=== PATIENT | female | born 1995 | race Caucasian/White ===

== ENCOUNTER → 2019-01-13 15:30 | Outpatient (CLI) | payer OTHER, SELFPAY ==
[2019-01-13 20:34] LABS: Chlamydia Trachomatis by PCR Negative (Negative); Neisserai gonorrhoeae by PCR Negative (Negative); Probe Check PASS; Sample Adequacy Control PASS; Specimen Processing Control PASS
== END ==
PROVIDERS: Visit Provider Obstetrics & Gynecology
DX: Z12.4 Encounter for screening for malignant neoplasm of cervix (principal); Z11.3 Encounter for screening for infections with a predominantly sexual mode of transmission
CPT/HCPCS: 87491; 87591; 88175; G0145

== ENCOUNTER → 2019-01-23 11:42 | Outpatient (CLI) | payer OTHER, SELFPAY ==
[2019-01-23 15:58] LABS: Color, Urine Yellow (Yellow); Glucose, Dipstick Normal (Normal); Ketone-Dipstick Negative (Negative); Leukocyte Esterase-Dipstick Negative /ul (Negative); Nitrite-Dipstick Negative (Negative); Occult Blood-Urine 10 /ul (Negative); Protein-Dipstick Negative (Negative); Specific Gravity, Urine 1.015 (1.002-1.030); Urine Bilirubin Dipstick Negative (Negative); Urine Clarity Cloudy (Clear); Urine Urobilinogen Normal (Normal)
[2019-01-23 16:02] LABS: Absolute Neutrophil Count 7.5 X10^3/uL (2.0-7.7); Basophil# 0.04 X10^3/uL; Basophil% 0.4 % (0-1); Eosinophil# 0.11 X10^3/uL; Mean Corp Hgb Conc 34.2 g/gl (32-36); Mean Corpuscular Hgb 30.6 pg (27.0-32.0); Mean Corpuscular Volume 89.4 fL (81-99); Mean Platelet Vol. 10.1 fl (6.2-12.0); Monocyte# 0.74 X10^3/uL; Neutrophil # 7.51 X10^3/uL (2.7-7.7); Neutrophil % 71.5 % (47-70); POSITIVE COUNT NO; POSITIVE DIFFERENTIAL NO; POSITIVE MORPHOLOGY NO; Platelet Count 280 K/mm3 (150-450); RBC Distribution Width CV 12.1 % (11.6-14.6); RBC Distribution Width SD 38.9 fl (35.1-43.9); Red Blood Count 4.25 M/mm3 (4.2-5.4); White Blood Count 10.5 K/mm3 (4.4-11.0)
[2019-01-23 16:30] LABS: Thyroid Stim Hormone (TSH) 0.68 uIU/mL (0.358-3.74)
[2019-01-23 17:07] LABS: HIV - WCH Non-Reactive (Nonreactive); Rubella IgG 44.4 IU/mL
[2019-01-23 17:16] LABS: Amphetamine Urine VISTA NEGATIVE (<1000 ng/mL); Barbiturate Urine VISTA NEGATIVE (< 200 ng/mL); Benzodiazepine Urine VISTA NEGATIVE (< 200 ng/mL); Cocaine Urine VISTA NEGATIVE (< 300 ng/mL); Ecstacy Urine VISTA NEGATIVE (< 500 ng/mL); Methadone Urine VISTA NEGATIVE (< 300 ng/mL); PCP Urine VISTA NEGATIVE (< 25 ng/mL); THC Urine VISTA NEGATIVE (< 50 ng/mL); Vista UDS pH Range 6
[2019-01-24 03:12] LABS: Prenatal RPR NONREACTIVE (NONREACTIVE)
[2019-01-26 09:51] LABS: HEPATITIS B SURFACE AG Negative (Negative); Hep C Antibodies <0.1 s/co ratio (0.0-0.9)
== END ==
PROVIDERS: Visit Provider Obstetrics & Gynecology
DX: Z34.81 Encounter for supervision of other normal pregnancy, first trimester (principal)
CPT/HCPCS: 36415; 80307; 81002; 84443; 85025; 86703; 86762; 86803; 87340

== ENCOUNTER 2019-03-09 18:43 | Emergency (ER) | payer OTHER, SELFPAY ==
[2019-03-09 18:43] VITALS: BP 147/81; PULSE 98; RESP 16; TEMP 36.3; O2SAT 100; BMI 22.8
[2019-03-09 19:49] LABS: Absolute Lymphocyte Count 2.39 X10^3/ul (0.83-4.51); Absolute Neutrophil Count 8.4 X10^3/uL (2.0-7.7); Basophil# 0.03 X10^3/uL; Basophil% 0.3 % (0-1); Eosinophil# 0.06 X10^3/uL; Eosinophils% 0.5 % (0-5); Hematocrit 31.8 % (37-47); Hemoglobin 11.4 g/dl (12.0-15.0); Lymphocyte # 2.39 X10^3/ul (4.0); Lymphocyte % 20.6 % (19-41); Mean Corp Hgb Conc 35.8 g/gl (32-36); Mean Corpuscular Hgb 30.5 pg (27.0-32.0); Monocyte# 0.67 X10^3/uL; Monocyte% 5.8 % (0-10); Neutrophil # 8.43 X10^3/uL (2.7-7.7); Neutrophil % 72.6 % (47-70); Platelet Count 234 K/mm3 (150-450); RBC Distribution Width CV 12.9 % (11.6-14.6); RBC Distribution Width SD 39.8 fl (35.1-43.9); Red Blood Count 3.74 M/mm3 (4.2-5.4); White Blood Count 11.6 K/mm3 (4.4-11.0)
[2019-03-09 19:51] LABS: POSITIVE COUNT NO; POSITIVE DIFFERENTIAL NO; POSITIVE MORPHOLOGY NO
[2019-03-09 20:05] LABS: Internal QC Validated? YES +Cl - CLEAR BKGD
[2019-03-09 20:08] LABS: Pregnancy, Serum, hCG Quali. POSITIVE Negative
--- NOTE | 2019-03-09 20:08 | ED.VISSUMM ---
- ER Visit Summary Date of Service: 03/09/19 Chief Complaint: Vaginal bleeding History of Present Illness: The patient is a 23 F 13-week gestation followed by Dr. Elizalde presents with vaginal bleeding while getting ready for work at 4 PM. Soaked 1 pad, light bleeding since. No abdominal cramping with symptoms. Denies trauma. Mild dysuria today. No fevers. Denies any past medical history. Denies alcohol, tobacco, or illicit drug use. Last seen obese 6 days ago. Denies any risky sexual behaviors. Takes vitamins and nausea medicines for induced vomiting. Physical Examination: General: Alert and oriented ?3, no acute distress HEENT: Normocephalic, atraumatic. Moist mucosa membranes Neck: supple, nontender. Cardiovascular: Regular rate and rhythm, no murmurs Respiratory: Normal breath sounds, symmetric, no distress Abdomen: Soft, nontender, nondistended : Normal external exam, speculum examination brown discharge in the vault, cervix and osseous normal. No active bleeding. Extremities: Nontender, no edema, pulses intact ?4 Neuro: no focal neurological deficits. Test Results: Hemoglobin 0.4. Creatinine 0.66. UA normal. ABO Rh: B+. Wet prep negative. GC and chlamydia sent. Emergency Department Course and Treatment: There is no active bleeding. Bedside ultrasound performed myself noted heart tones 158 with intrauterine . Hemoglobin stable 11.4. She is Rh+ this is her first . GC chlamydia sent. Discussed threatened miscarriage at this time. Pelvic rest. Monitoring symptoms. Follow-up with your PCP. All questions answered. Treatment Plan: [] Disposition: Discharge Impression: 1. Threatened miscarriage 2. First trimester This note was generated with [employer] dictation software. It may contain incorrect words, spelling, and punctuation that were not noted in review of the chart prior to signing ED Disposition - Plan for ED Patient: Disposition: Home or Assisted Living Diagnosis: Threatened miscarriage, First trimester Instructions: ED Miscarriage Poss Referrals: Duane Elizalde MD [Primary Care Provider] - 3-5 Days
[2019-03-09 20:09] LABS: Anion Gap 7 (5-15); BUN 7 mg/dL (7-18); BUN/Creat Ratio 10.5 RATIO (10-20); Calcium,Total 8.7 mg/dL (8.5-10.1); Chloride 107 mmol/L (98-107); Creatinine, Serum 0.66 mg/dL (0.55-1.02); EST Glomerular Filtration Rate 118 mL/min (>60); Est Glom Filt Rate - Afr Amer 142 mL/min (>60); Estimated Creatinine Clearance 115.45 ml/min; Glucose 72 mg/dL (74-106); Potassium 3.7 mmol/L (3.5-5.1); Sodium Level 140 mmol/L (136-145)
[2019-03-09 20:31] LABS: Mucous, Urine 0 SEEN /hpf (<or=2+); Red Blood Cells-Urine 0 SEEN /hpf (0-5); Squamous Epithelial Cells - UA 0 SEEN /hpf (5-10); White Blood Cells 0 SEEN /hpf (0-5)
[2019-03-09 20:37] LABS: Color, Urine Yellow (Yellow); Glucose, Dipstick Normal (Normal); Ketone-Dipstick 50 mg/dl (Negative); Leukocyte Esterase-Dipstick Negative /ul (Negative); Nitrite-Dipstick Negative (Negative); Occult Blood-Urine 25 /ul (Negative); Protein-Dipstick Negative (Negative); Specific Gravity, Urine 1.015 (1.002-1.030); Urine Bilirubin Dipstick Negative (Negative); Urine Clarity Cloudy (Clear); Urine Urobilinogen Normal (Normal)
[2019-03-09 20:49] LABS: Amorphous Sediment 2+; Bacteria RARE /hpf (None Seen)
[2019-03-09 21:16] VITALS: BP 131/56; PULSE 90; RESP 16
[2019-03-09 22:35] LABS: Chlamydia Trachomatis by PCR Negative (Negative); Neisserai gonorrhoeae by PCR Negative (Negative); Probe Check PASS; Sample Adequacy Control PASS; Specimen Processing Control PASS
== END 2019-03-09 21:16 | disposition home or self-care (01) ==
PROVIDERS: Emergency Medicine; Emergency Provider Emergency Medicine; Family Provider Obstetrics & Gynecology; PCP Obstetrics & Gynecology
DX: O20.0 Threatened abortion (principal); R30.0 Dysuria; Z3A.13 13 weeks gestation of pregnancy
CPT/HCPCS: 80048; 81001; 84703; 85025; 86850; 86900; 87210; 87491; 87591; 99282

== ENCOUNTER → 2019-06-19 09:50 | Outpatient (CLI) | payer OTHER, SELFPAY ==
[2019-06-19 10:33] LABS: Hematocrit 30.9 % (37-47); Hemoglobin 10.6 g/dL (12.0-15.0); Mean Corp Hgb Conc 34.3 g/dL (32-36); Mean Corpuscular Volume 90.4 fL (81-99); Mean Platelet Vol. 9.5 fl (6.2-12.0); Platelet Count 250 K/mm3 (150-450); RBC Distribution Width CV 11.5 % (11.6-14.6); RBC Distribution Width SD 37.3 fl (35.1-43.9); Red Blood Count 3.42 M/mm3 (4.2-5.4); White Blood Count 10.1 K/mm3 (4.4-11.0)
[2019-06-19 10:38] LABS: Glucose Challenge Gest 1H 50g 129 mg/dL (70-140)
== END ==
PROVIDERS: Visit Provider Obstetrics & Gynecology
DX: Z34.83 Encounter for supervision of other normal pregnancy, third trimester (principal); Z3A.00 Weeks of gestation of pregnancy not specified
CPT/HCPCS: 36415; 82950; 85027

== ENCOUNTER 2019-08-09 17:13 | Outpatient (CLI) | payer OTHER, SELFPAY ==
[2019-08-09 17:19] VITALS: BMI 29.9
--- NOTE | 2019-08-10 20:18 | OB.TRI.NOTE ---
- Problem List (1) Decreased movement Status: Acute Qualifiers: Fetus number: single or unspecified fetus Trimester: third trimester Qualified Code(s): O36.8130 - Decreased movements, third trimester, not applicable or unspecified History of Present Illness Date of Service: 08/10/19 Was patient seen by the physician?: No Reason For Visit: DFM Final GEOVANNI: 09/08/19 Final GEOVANNI Source: US <20 weeks Gestational age: 35 Weeks and 5 Days History of Present Illness: 23yo G1 @ 35 5/7 wga with c/o decreased FM Allergies acetaminophen [From Vicodin] Adverse Reaction (Verified 08/09/19 17:20) Nausea/Vom/Diarrhea hydrocodone [From Vicodin] Adverse Reaction (Verified 08/09/19 17:20) Nausea/Vom/Diarrhea NST - FHR Rate Baby A Baseline: 130 Variability:: Moderate Accelerations:: 15 x 15 Decelerations:: None NST Reactive:: Yes FHR Category:: Category I Uterine Activity:: 0/10 min Impression/Plan -Pt reported movement during monitoring -Cat I FHR, reactive NST -d/c home
== END 2019-08-09 17:40 | disposition home or self-care (01) ==
LOC: WPOUT 17:16 → WP 08-11 11:10
PROVIDERS: Visit Provider Obstetrics & Gynecology
DX: O36.8130 Decreased fetal movements, third trimester, not applicable or unspecified (principal); Z88.5 Allergy status to narcotic agent; Z3A.35 35 weeks gestation of pregnancy
CPT/HCPCS: 59025; 59050; 99218; G0378

== ENCOUNTER → 2019-08-11 13:34 | Outpatient (CLI) | payer OTHER, SELFPAY ==
[2019-08-09 17:19] VITALS: BMI 29.9
== END ==
PROVIDERS: Visit Provider Obstetrics & Gynecology
DX: Z36.85 Encounter for antenatal screening for Streptococcus B (principal)
CPT/HCPCS: 87081

== ENCOUNTER 2019-09-14 03:00 | Inpatient (IN) | payer OTHER, SELFPAY ==
[2019-09-14] MEDS: Lactated Ringers 1,000 ML 50 ML IV (03:20)
[2019-09-14 03:22] VITALS: BMI 30.7
[2019-09-14 03:35] LABS: Absolute Lymphocyte Count 2.64 X10^3/uL (0.83-4.51); Absolute Neutrophil Count 9.9 X10^3/uL (2.0-7.7); Basophil# 0.05 X10^3/uL; Basophil% 0.4 % (0-1); Eosinophil# 0.08 X10^3/uL; Eosinophils% 0.6 % (0-5); Hemoglobin 9.6 g/dL (12.0-15.0); Lymphocyte # 2.64 X10^3/ul (4.0); Lymphocyte % 19.2 % (19-41); Mean Corpuscular Hgb 25.1 pg (27.0-32.0); Mean Corpuscular Volume 78.5 fL (81-99); Mean Platelet Vol. 10.8 fl (6.2-12.0); Monocyte# 1.04 X10^3/uL; Monocyte% 7.6 % (0-10); NRBC Flagged by Analyzer 0 % (0-5); Neutrophil # 9.85 X10^3/uL (2.7-7.7); Neutrophil % 71.5 % (47-70); Platelet Count 303 K/mm3 (150-450); RBC Distribution Width CV 12.7 % (11.6-14.6); Red Blood Count 3.82 M/mm3 (4.2-5.4); White Blood Count 13.8 K/mm3 (4.4-11.0)
[2019-09-14] MEDS: Oxytocin 30 units/NS 500 ml 30 UNITS/500 ML IV.SOLN 334 UNITS IV (05:24)
[2019-09-14] MEDS: Methylergonovine 0.2 MG/ML Ampul IM (05:24)
--- NOTE | 2019-09-14 06:25 | PCM.OPRPT ---
Vaginal Delivery Maternal Presentation: Active Labor 23 yo at 40w5d presents in active labor @ 40w6d gestation Amniotic Membrane Rupture Type: Artificial Rupture of Membrane time: 331 Amniotic Fluid Description: Clear Final GEOVANNI: 09/08/19 Final GEOVANNI Source: US <20 weeks Gestational age: 40 Weeks and 6 Days Date of Procedure: 09/14/19 Pre-Operative Diagnosis: 23 yo at 40w6d gestation Post-Operative Diagnosis: Surgery/ Procedure Performed: Spontaneous Vaginal Delivery Type of Anesthesia: Local with 1% lidocaine Description of Procedure: Pushed well, required extensive coaching, and delivered a vigorous male infant OA to LORIE over a 2nd degree perineal laceration; shoulders followed quickly with maternal effort; infant placed on maternal abdomen, dried and stimulated, cord clamped x 2 by provider and cut by FOB; placenta delivered spontaneously with gentle cord traction, Ambrosio mechanism, intact, 3-vessel cord, central insertion; 2nd degree perineal laceration repaired with 3-0 Vicryl, good hemostasis obtained; EBL 450ml Lap sponge, Raytec and instrument count correct x 2 with RN Presentation: Vertex, LORIE Placental Delivery Description: Spontaneous Placenta Disposition: [facility] Cord Vessel Description: 3 Vessels Cord Entanglement: None Estimated Blood Loss: 400 Infant A gender: Male (1 minute): 8 (5 minute): 9 Episiotomy Description: None Laceration: Midline, Perineal Extension/lac, 2nd degree Medications given after delivery: IV Pitocin
--- NOTE | 2019-09-14 06:45 | DCINST_ITS ---
Discharge Diet: No Restrictions Discharge Activity: Return to Normal Activity, May Drive, May Shower, May Take a Tub Bath Return to work on:: 10/20/19 May resume sexual activity in: 6-8 weeks Weight Bearing Status: Weight bearing as tolerated Lifting Restrictions: Nothing heavier than the baby for two weeks Additional Activity Instructions:: No cooking, cleaning, shopping, or long car rides for two weeks Additional Instructions: If you experience any of the following, contact your healthcare provider. * Bleeding that soaks a pad every hour for 2 hours * Fever 100.4 or higher * Unrelieved incision or abdominal pain * Swelling, redness, discharge or bleeding from your incision or episiotomy site * Your incision begins to separate * Problems urinating (including inability to urinate or burning while urinating). * Visual changes * Severe headache * Flu-like symptoms * Pain or redness in one of both of your breasts * Pain, warmth, tenderness or swelling in your legs, especially the calf area * Frequent nausea and vomiting * Symptoms of depression or anxiety If you experience any of the following, call 911 or go to the nearest Emergency Room. * Chest pain * Problems breathing * Seizure activity * Partial or complete paralysis of a body part, slurred speech, weakness or drooping of the face, or a sudden inability to walk or hold your balance Allergies/Adverse Reactions: Allergies acetaminophen [From Vicodin] Adverse Reaction (Verified 08/09/19 17:20) Nausea/Vom/Diarrhea hydrocodone [From Vicodin] Adverse Reaction (Verified 08/09/19 17:20) Nausea/Vom/Diarrhea Medications to take at Discharge Vit No.130/Iron/Folic [ Tablet] 1 ea PO DAILY 08/09/19 Dibucaine 1 applic TOPICAL TID PRN PRN tube 09/16/19 Hydrocortisone 2.5% Crm [Hytone] 1 applic TOPICAL TID PRN PRN tube 09/16/19 Ibuprofen [Motrin] 600 mg PO Q6H PRN PRN tablet 09/16/19 Please Follow Up With: Josefina Edward CNM When: 6 weeks for checkup Primary Care Physician: Care Physician,No Primary [Primary Care Provider] - Test Results: Test results from this visit will be discussed in further detail at your follow- up appointment, if applicable.
[2019-09-14] MEDS: Ibuprofen 600 MG Tablet PO ×3 (08:06→23:55)
[2019-09-14] MEDS: Dibucaine 30 GM Tube 1 APPLIC TOPICAL (08:12)
[2019-09-14 12:30] VITALS: BP 123/66; PULSE 89; RESP 18; TEMP 37.3
[2019-09-14] MEDS: Acetaminophen 500 MG Tablet 1000 MG PO (12:59)
--- NOTE | 2019-09-14 16:01 | HP.PCM_ITS ---
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 : 1995 Age: 23 Address: [address] [place] [address] Phone: [phone] Insurance Carrier: [facility] [id number] Emergency Contact: JIMMIE BOUDREAUX [phone] ...................................................................... Roland is a 23 yo by L=7w3d US who presented in active labor. Final GEOVANNI: 09/08/19 By Ultrasound: PARITY: (G-Total Pregnancies P-Fullterm,Premature,Induced AB,Spont AB, Ectopics, Multiple,Living) GEOVANNI CONFIRMATION: By LMP: 12/02/18 Final GEOVANNI: 09/08/19 BLOOD TYPE: AFP: I 1 HR PG: GBS: Original Ordering Provider: Liseth Hernandez Comments: VAGINAL/RECTAL MARION Culture Group B Beta Streptococcus is not isolated. Rublla titer (>10 immune)-- Hepatatis B ilana AG-- CULTURES:-- OB PROBLEM LIST: FOB and pt weighed 10+ and 9+ lbs at respectively FOB born with one kidney, remaining kidney is enlarged MSAFP and CF testing declined Planning office childbirth and classes Pt's mother had 3+ first trimester SAB's ALLERGIES: Vicodin Vomiting MEDICATIONS: One A Day Women's DHA 28 mg iron-800 mcg oral pack daily promethazine 25 mg tablet One Half tablet by mouth every 4 to 6 hrs as needed for nausea / vomiting Vitamin B-6 50 mg capsule daily Vitamin C 250 mg chewable tablet daily SOCIAL HISTORY: Smoking - Never Alcohol Use - denies drinking Diet - moderate, balanced diet Lifestyle - Exercise - active work Employer - [id number] 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 Drug Use - denies use of street drugs Sexual Activity - Residence - lives with Place of - [place], [place] Hours Worked - 40 hours per week Spouse-Sig Other Name - Jimmie Noblest Spouse-Sig Other Occupation - Button Attaching Machine Operator Spouse-Sig Other Phone No - [phone] PRIOR DELIVERY HISTORY DEL DATE GEST LAB WT LB WT OZ TYPE ANES LABOR TX ANTEPARTUM FLOW CHART VISIT GE RTC FU F F MS U U DATE WK MD WKS HT PN HR M SS BP ED WT MS GL D EF ST __ ____ ___ __ __ ___ __ __ __ ___ __ __ __ ___ __ 16 Aug 40 JMW 1 40 V + + 120/70 0 177 - - 4 90 -1 11 Aug 39 SHM 1 40 V + + 110/80 sl 178 - - 4+ 75 -2 08 Aug 39 SHM 1 39 V + de 114/70 0 177 - - 4 75 -3 30 Sep 38 JMW 1 38 V + + 112/66 sl 173 tr - 4 80 -2 23 Sep 37 KW 1 36 + + 118/76 sl 173 tr - 16 Sep 36 SHM 1 36 V + + 110/60 0 172 tr - 3 50 -3 11 Sep 35 JMW 1 35 + + 124/62 tr 170 - - Jun JMW 2 33 + + 100/64 0 167 tr - 07 Jul 25 JMW 3 30 + + 122/62 tr 163 - - Jun 22 JMW 3 28 + + 120/62 0 153 - tr May 19 JMW 4 24 + + 108/72 0 154 tr - 30 April 14 JMW 4 20 + + 110/70 0 147 - - April 11 JMW 3 17 + O 116/60 0 137 tr - 05 Mar 07 JMW 4 + O 128/72 0 132 tr - 28 Dec 7 JMW 4 U+ US 126/70 0 135 tr - ANTEPARTUM NOTE(S): Sep 10 2019: feeling well. Cervix check., induce per request Sep 05 2019: feeling well. Cervix check. Sep 02 2019: doing well, changes to movement, inc discharge Aug 25 2019: Ctxs-occas, Good FM Aug 18 2019: Low Pressure,Good FM Aug 11 2019: GBS, LARC today Aug 06 2019: Good FM,See note Jul 23 2019: feeling well. Nerve pinching on R lower abdomen. Jul 02 2019: Good FM,Feeling Well Jun 19 2019: CBC,OGCT Today,Good FM,Feeling Well May 22 2019: Glucola/Instructions Given,Good FM Apr 24 2019: feeling well., US OK Apr 01 2019: Declines AFP and Doing Well Feb 28 2019: nausea continues, fatigue improving Jan 23 2019: Sono,NOB and PNV Today,Periodic N/V COMPREHENSIVE ANTEPARTUM NOTE(S): Sep 10 2019: (m*) Here at 40.2 weeks. + FM. FHR 121. Reports green mucous discharge over the last week. Has been stripped twice and does not wish to be done today, but is wanting induction. Wishes to not start with pitocin, hopes to have water broke and try to labor naturally. If no change is willing to then start pitocin. Will schedule induction and call her with date/time. - CH Sep 02 2019: Membranes stripped, NST for dec FM, reactive. Aug 25 2019: H taken to OB. tkg Aug 18 2019: Feeling well; reports active FM; Feleling some lower pelvic pressure; VB, LOF; discussed warning signs, s/s Labor, when to call/come in; RTO 1 week for PNV - KVW Aug 15 2019: GBS negative. EB Aug 11 2019: LARC declined. Discussed Labor, ROM, FM precautions. US CEPHALIC. AAKASH 10cm, EFW 2657g (33.8th%). GBS today. Aug 10 2019: Call msg from Sat 08/09 @ [address] Elizalde. Roland calling @ 35 wks 5 days stating she has felt very little FM for the past 2 days. She did not call the office yesterday stating she was working. Sent to L+D for evaluation well-being. Aug 06 2019: Roland and spouse presents here today for PNV and asking about Flu shots and our feeling on same. Reviewed that after first trimester they are recommended. She also ask about having periodic restless legs, suggested increasing water intake, admits she drinks 2 full glasses of milk daily, and may want to add a Magnesium supplement, as some report that helps their legs a lot. Denies other concerns at this time. TYRESE Jul 23 2019: Feeling well; reports active FM; denies UCs, VB, LOF; experiencing some cramping in lower legs at night, especially after a long shift on her feet, as well as round ligament pain; recommendations to alleviate d iscussed; discussed warning signs, s/s PTL; RTO 2 week(s)for PNV Feb 01 2019: Call Msg from 10:45 PM. Pt of Roland Francisco calling @ 8 wks stating nausea and vomiting has been getting worse, only occurring in the evenings. Feeling better during the day. Taking B6 and Unisom, but not helping..Drinking mostly water and some apple juice during the day having no problems then. Reviewed some ladies do have issues in the evenings vs mornings. Happens after eating evening meal. Reviewed dietary suggestions to help lessen nausea: avoid meat, dairy, tomato products same meal. Meat should not be more than half the palm of her hand. Plant proteins better tolerated than animal proteins. Try eating more water based foods + plant proteins in the evenings which may help. Per discussion w/Dr Jose G Sousa, Rx Promethazine 25 mg, # 60, 1/2 tablet by mouth q 4-6 hrs as needed, RF x 5 called to [facility] in [place]. I was not able to speak to the pharmacist, tech telling me pharmacist too busy. All pertinent informtion re: Order left on VM and to call me back if any questions. My phone # given. Former last name . She is and last name now [facility]. Jan 24 2019: B positive RI. Tox screen neg. EB Jan 23 2019: Roland is here for her NOB visit at 7 w 3 d, she is a with an GEOVANNI of 09/08/2019. US and PNV with Dr. Elizalde completed prior to NOB vis it. , Jimmie, accompanies Roland today, and he seems very involved and interested. Office practice patterns reviewed, including labs being collected today. Emergencies/danger signs, UTI s/s, round ligament pain, and common OTC medications approved/not approved for use during reviewed. Delivery at [facility] Is planned with a likely epidural, and she plans to breastfeed. Office and childbirth classes discussed, both are planned. Roland is a life long non-smoker, and denies use of drugs or ETOH. She has been taking an OTC tablet, along with a DHA supplement; but states that she has trouble with both making her sick sometimes. Suggested taking vitamin just before going to sleep at night, or trying a gummy vitamin. She experiences nausea almost days, but feels that Vitamin B6 50 mg twice a day has been helping; she states that she took. Unisom at bedtime last night and felt it was helpful; she plans to continue same. Also reviewed other measures that may help minimize nausea, including small frequent meals with protein included throughout the day, adequate water hydration of at least one gallon per 24 hrs, and motion sickness bracelets. Genetic Screening form completed; Jimmie was born with one kidney, and the remaining kidney is enlarged. MSAFP and CF testing declined, consent signed as such. 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 She also walks several times a week on her treadmill, and plans to continue to do so. Kegel exercises explained and encouarged. Reinforced water and dietary needs, including caloric needs, recommended weight gain, limiting empty calories, and limiting caffeine to one cup a day. Printed guide for food safety provided with review. Roland states that she understands all information provided during NOB visit, and has no questions following same. To [facility] draw station for labs. AW Jan 13 2019: Roland is being seen for missed menses appt. Pt is new to this facility. This is her first . UPT in office is positive. LMP 1-7-19. Pt is about 6 weeks. GEOVANNI 09-08-19. Pt also does have twins in her family. Pt has been taking B6 due to nausea and it seems to be helping. 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 I advised her and her that she can do as much as she can for now but when it starts to be a problem then working will have to be reduced. She also knows she will have lifting restrictions which is lifting no more than 25 lbs. information reviewed. Pap and cultures due today. AM Jan 13 2019: ok REVIEW OF SYSTEMS: GENERAL - Denies fever, or chills SKIN - Denies rash, new skin lesions, or change in moles EYES - Denies blurred vision, or change in visual acuity EARS - Denies ear pain, or difficulty hearing NOSE - Denies nasal congestion, discharge, or bleeding MOUTH - Denies sore throat, or difficulty swallowing NECK - Denies pain or swelling RESPIRATORY - Denies shortness of breath, cough, wheezing CARDIOVASCULAR - Denies palpitations, chest pain, orthopnea, PND, peripheral edema, syncope or claudication GASTROINTESTINAL - Denies nausea, vomiting, diarrhea, constipation, Denies abdominal pain, melena and or bright red blood GENITOURINARY - Denies dysuria, frequency of urination, urgency, or hesitancy MUSCULOSKELETAL - Denies joint or muscle pain, or back pain NEUROLOGICAL - Denies localized numbness, weakness, or tingling PSYCHIATRIC - Denies depression, anxiety, substance abuse or suicide attempts ENDOCRINE - Denies heat or cold intolerance, weight loss or gain, increasing thirst HEMATO-IMMUNOLOGIC - Denies easy bruising, bleeding, oral ulcerations or recurrent infections GENETICS SCREENING: Age 35+ years: No Thalassemia: No Neural Tube Defect: No Down Syndrome: No MEEK-SACHS: No Sickle Cell Disease: No Hemophilia: No Musc. Dystrophy: No Cystic Fibrosis: No-declines screening Gustavo Chorea: No Mental Retardation: No Fragile X: No Other genetic: No Other defects: No SABs/still births: No Drugs since LMP: No INFECTION HISTORY: High risk AIDS: No High risk Hepatitis: No Exposed to TB: No Exposed to Herpes: No Rash/viral illness since LMP: No History of STD: No MENSTRUAL HISTORY: *Menses Amount/Duration: 5-6 DAYSMenses Regularity: Regular* PAST SUMMARY: PARITY: 1. Total Pregnancies............ 1 2. Full Term Pregnancies........ 0 3. Premature.................... 0 4. Abortions - Induced.......... 0 5. Abortions - Spontaneous...... 0 6. Ectopics..................... 0 7. Multiple Births.............. 0 8. Living Children.............. 0 Labs for : ROLAND NOBLESOLT since 12/12/2018 ORDER DATEIN DESCRIPTION VALUE UNITS RANGE A+ COMMENT OPERATIVE REPORT 09/14/19 [facility] Medical Records Department [address] [place] [address] Operative Report 09/14/19 0625 MR#: [id number] Acct: [id number] Name: ROLAND BOUDREAUX Rep #: [id number] : 1995 23 From: Josefina Edward CNM PCP: Care Physician, No Primary Status: ADM IN Location: [place] [id number] Vaginal Delivery Maternal Presentation: Active Labor 23 yo at 40w5d presents in active labor @ 40w6d gestation Amniotic Membrane Rupture Type: Artificial Rupture of Membrane time: 331 Amniotic Fluid Description: Clear Final GEOVANNI: 09/08/19 Final GEOVANNI Source: US <20 weeks Gestational age: 40 Weeks and 6 Days Date of Procedure: 09/14/19 Pre-Operative Diagnosis: 23 yo at 40w6d gestation Post-Operative Diagnosis: Surgery/ Procedure Performed: Spontaneous Vaginal Delivery Type of Anesthesia: Local with 1% lidocaine Description of Procedure: Pushed well, required extensive coaching, and delivered a vigorous male infant OA to LORIE over a 2nd degree perineal laceration; shoulders followed quickly with maternal effort; placed on maternal abdomen, dried and stimulated, cord clamped x 2 by provider and cut by FOB; placenta delivered spontaneously with gentle cord traction, Ambroiso mechanism, intact, 3-vessel cord, central insertion; 2nd degree perineal laceration repaired with 3-0 Vicryl, good hemostasis obtained; EBL 450ml Lap sponge, Raytec and instrument count correct x 2 with RN Presentation: Vertex, LORIE Placental Delivery Description: Spontaneous Placenta Disposition: [facility] Cord Vessel Description: 3 Vessels Cord Entanglement: None Estimated Blood Loss: 400 A gender: Male (1 minute): 8 (5 minute): 9 Episiotomy Description: None Laceration: Midline, Perineal Extension/lac, 2nd degree Medications given after delivery: IV Pitocin 09/14/19 1555 Date Josefina Edward CNM CC: CNMehdi Edward; No Primary Care Physician Signed TYPE AND SCREEN 09/14/19 Reason for Type AND Screen/Red Cells: [facility]~[address] [place], [address]~ BLOOD TYPE GEL B POSITIVE N ANTIBODY SCREEN NEGATIVE N CBC W/DIFF, AUTOMATED 09/14/19 NOTE Original Ordering Provider: MANUELMehdi Edward WBC 13.8 K/mm3 4.4-11.0 H RBC 3.82 M/mm3 4.2-5.4 L HGB 9.6 g/dL 12.0-15.0 L HCT 30.0 % 37-47 L MCV 78.5 fL 81-99 L MCH 25.1 pg 27.0-32.0 L MCHC 32.0 g/dL 32-36 RDW CV 12.7 % 11.6-14.6 RDW SD 36.0 fl 35.1-43.9 PLT 303 K/mm3 150-450 MPV 10.8 fl 6.2-12.0 NEUT% 71.5 % 47-70 H LY% 19.2 % 19-41 MONO% 7.6 % 0-10 EO% 0.6 % 0-5 BASO% 0.4 % 0-1 IM GRAN % 0.700 % 0.0-0.9 IG% - Immature Granulocytes (promyelocytes, myelocytes and metamyelocytes) > 1% indicates that a LEFT SHIFT is Present. ABSOLUTE NEUT 9.9 X10 3/uL 2.0-7.7 H ABSOLUTE LYMPH 2.64 X10 3/uL 0.83-4.51 NRBC, FLAGGED 0 % 0-5 CULTURE, GROUP B STREPTOCOCCUS 08/11/19 NOTE Original Ordering Provider: Liseth Hernandez Comments: VAGINAL/RECTAL MARION Culture Group B Beta Streptococcus is not isolated. Reviewed by DWAYEN GLUCOSE CHALLENGE GEST 1H 50G 06/19/19 NOTE Original Ordering Provider: Laura Elizalde GLU GEST 50G 1H 129 mg/dL 70-140 Reviewed by LAURA CBC-COMPLETE BLOOD CNT NO DIFF 06/19/19 NOTE Original Ordering Provider: Laura Elizalde WBC 10.1 K/mm3 4.4-11.0 RBC 3.42 M/mm3 4.2-5.4 L HGB 10.6 g/dL 12.0-15.0 L HCT 30.9 % 37-47 L MCV 90.4 fL 81-99 MCH 31.0 pg 27.0-32.0 MCHC 34.3 g/dL 32-36 RDW CV 11.5 % 11.6-14.6 L RDW SD 37.3 fl 35.1-43.9 PLT 250 K/mm3 150-450 MPV 9.5 fl 6.2-12.0 Reviewed by LAURA HEPATITIS C ANTIBODIES 01/23/19 NOTE Original Ordering Provider: Laura Tonio HEP C AB <0.1 s/co ratio 0.0-0.9 Negative: < 0.8 Indeterminate: 0.8 - 0.9 Positive: > 0.9 The CDC recommends that a positive HCV antibody result be followed up with a HCV Nucleic Acid Amplification test (312570). HEPATITIS B SURFACE AG 01/23/19 NOTE Original Ordering Provider: Laura Elizalde HB SURF AG Negative Negative Performed at: [address] [id number] Critical Care Physician: Horacio Jimenez PhD, Phone: [phone] Reviewed by DWAYNE RPR 01/23/19 NOTE Original Ordering Provider: Laura Martyumiko RPR NONREACTIVE NONREACTIVE Reviewed by DWAYNE URINALYSIS, ROUTINE (DIPSTICK) 01/23/19 NOTE Original Ordering Provider: Laura Elizalde COLOR Yellow Yellow CLARITY Cloudy Clear GLUCOSE, UR Normal mg/dl Normal BILIRUBIN URINE Negative mg/dL Negative KETONE UR Negative mg/dl Negative SP.GR. DIPSTX 1.015 1.002-1.030 PH UR 8.0 5.0 - 8.0 PROT DIPSTX Negative mg/dl Negative UROBILI Normal mg/dl Normal NITRITE UR Negative Negative OCCULT BLOOD-UR 10 /ul Negative H LEUK ESTERASE Negative /ul Negative Reviewed by DWAYNE URINE DRUG SCREEN (VISTA) 01/23/19 NOTE Original Ordering Provider: Laura Elizalde TO BE CONFIRMED CONFIRMATORY TESTING FOR ALL POSITIVE URINE DRUG SCREEN RESULTS WILL ONLY BE SENT OUT UPON PHYSICIAN ORDER. VISTA Urine Drug Screen methods provide only preliminary analytical test results. A more specific alternate chemical method must be used in order to obtain a confirmed analytical result. Gas chromatography/mass spectrometery (GC/MS) is the preferred confirmatory method. Clinical consideration and professional judgement should be applied to any drug of abuse test result, particularly when preliminary positive results are used. URINE TCA TESTING MUST BE ORDERED SEPARATELY. USE TEST MNEMONIC: [facility] VISTA UDS PH 6 AMPHETAMINES NEGATIVE <1000 ng/mL BARBITIURATES NEGATIVE < 200 ng/mL BENZODIAZIPINE NEGATIVE < 200 ng/mL COCAINE NEGATIVE < 300 ng/mL ECSTACY NEGATIVE < 500 ng/mL METHADONE NEGATIVE < 300 ng/mL OPIATES NEGATIVE < 300 ng/mL PCP NEGATIVE < 25 ng/mL THC NEGATIVE < 50 ng/mL Reviewed by DWAYNE HIV - [facility] 01/23/19 NOTE Original Ordering Provider: Laura Elizalde HIV [facility] Non-Reactive Nonreactive Reviewed by DWAYNE RUBELLA IGG 01/23/19 NOTE Original Ordering Provider: Laura Elizalde RUBELLA IGG 44.4 IU/mL Antibody results Interpretation of Immune Status < 5 IU/ml Presumed Non-immune 5 - < 10 IU/ml Equivocal > or = 10 IU/ml Presumed Immune Reviewed by DWAYNE T AND S-NO CHARGE W/PNP 01/23/19 Reason for Type AND Screen/Red Cells: Surgery? [facility]~[address] [place], [address]~ BLOOD TYPE GEL B POSITIVE N AB SCREEN GEL NEGATIVE N Reviewed by DWAYNE THYROID STIM HORMONE (TSH) 01/23/19 NOTE Original Ordering Provider: Laura Elizalde TSH 0.68 uIU/mL 0.358-3.74 Reviewed by LAURA CBC W/DIFF, AUTOMATED 01/23/19 NOTE Original Ordering Provider: Laura Elizalde WBC 10.5 K/mm3 4.4-11.0 RBC 4.25 M/mm3 4.2-5.4 HGB 13.0 g/dl 12.0-15.0 HCT 38.0 % 37-47 MCV 89.4 fL 81-99 MCH 30.6 pg 27.0-32.0 MCHC 34.2 g/gl 32-36 RDW CV 12.1 % 11.6-14.6 RDW SD 38.9 fl 35.1-43.9 PLT 280 K/mm3 150-450 MPV 10.1 fl 6.2-12.0 NEUT% 71.5r % 47-70 H LY% 20.0 % 19-41 MONO% 7.0 % 0-10 EO% 1.0 % 0-5 BASO% 0.4 % 0-1 IM GRAN % 0.100 % 0.0-0.9 IG% - Immature Granulocytes (promyelocytes, myelocytes and metamyelocytes) > 1% indicates that a LEFT SHIFT is Present. ABSOLUTE NEUT 7.5 X10 3/uL 2.0-7.7 ABSOLUTE LYMPH 2.10 X10 3/ul 0.83-4.51 Reviewed by LAURA Reviewed by LAURA PAP TEST I-G 01/13/19 NOTE Original Ordering Provider: Laura Elizalde DIAGN . NEGATIVE FOR INTRAEPITHELIAL LESION OR MALIGNANCY. THIS SPECIMEN WAS RESCREENED PART OF OUR SVP PROGRAMMATIC TV PROGRAM. ADEQ . Satisfactory for evaluation. Endocervical and/or squamous metaplastic cells (endocervical component) are present. PERFORM . Richa Moreno, Hand I Cutter (ASCP) QC REV . Lexis Travis, Supervisory Hand I Cutter (ASCP) TEST METHOD . This liquid based ThinPrep(R) pap test was screened with the use of an image guided system. Performed at: [address] [id number] Critical Care Physician: Kelsey Maguire MD, Phone: [phone] COMM . . PAPSMR . The Pap smear is a screening test designed to aid in the detection of premalignant and malignant conditions of the uterine cervix. It is not a diagnostic procedure and should not be used as the sole means of detecting cervical cancer. Both false-positive and false-negative reports do occur. Reviewed by LAURA DEVINE/LAKEISHA [facility] BY PCR 01/13/19 NOTE Original Ordering Provider: Laura Elizalde [facility] PCR Negative Negative LAKEISHA BY PCR Negative Negative Reviewed by LAURA PROVIDER SIGNATURE ( REQUIRED) PHYSICAL EXAMINATION General Appearence: 23 yo female in no acute distress Vital Signs: AF, VSS Heart: RRR without rubs or gallops Lungs: CTA x 2 Breasts: deferred Abdomen: gravid Pelvis: Cervix: 90.5/100/0 Presentation: cephalic Fetus: Size: AGA Movement: present Heart: reassuring Contractions: Q 2-3 Impression: 23 yo by L=7w3d US who presented in active labor. Plan: Admit to L&D Continuous EFM Anticipate vaginal
[2019-09-14 16:08] VITALS: BP 121/66; PULSE 78; RESP 18; TEMP 37.7
[2019-09-14 20:45] VITALS: BP 134/77; PULSE 89; RESP 18; TEMP 37.2; O2SAT 98
[2019-09-15 00:09] VITALS: BP 123/69; PULSE 88; RESP 18; TEMP 36.6; O2SAT 98
[2019-09-15 04:50] VITALS: BP 122/77; PULSE 79; RESP 16; TEMP 36.7; O2SAT 98
[2019-09-15] MEDS: Acetaminophen 500 MG Tablet 1000 MG PO (07:46)
[2019-09-15 09:00] VITALS: BP 122/68; PULSE 89; RESP 16; TEMP 36.6; O2SAT 97
--- NOTE | 2019-09-15 09:46 | PCM.PN.OB ---
Subjective: Pain well controlled, tolerating diet, passing flatus, well Objective: AVSS Breasts soft, nipples with mild irritation fundus firm, midline, u/2, lochia small Perineal repair well approximated, mild edema, no drainage noted - Physical Exam General: Alert, Oriented x3, Cooperative, No apparent distress HEENT: PERRLA, EOMI Oral: Moist Mucosa Neck: Supple Lungs: Clear to auscultation, Normal air movement Cardiovascular: Regular rate, Regular Rhythm Abdomen: Bowel Sounds Present, Soft, Non Tender, Non-Distended, Passing Flatus Extremities: No Calf Tenderness Musculoskeletal: No Tenderness to Palpation of Joints or Extremities Neurological: Cranial nerves II-XII grossly intact, Deep Tendon Reflexes 2+/4 and Symmetrical Psych/Mental Status: Normal Affect, Appropriate, Alert and oriented to time, place, person, mood and affect Vital Signs Temp Pulse Resp BP Pulse Ox 97.9 F 89 16 122/68 H 97 09/15/19 09:00 09/15/19 09:00 09/15/19 09:00 09/15/19 09:00 09/15/19 09:00 Oxygen Delivery Method Room Air Weight: 178 lb 12.718 oz Body Mass Index (BMI) 30.7 Intake and Output for Last 24 Hours 09/13/19 09/14/19 09/15/19 23:59 23:59 23:59 Intake Total 604 / 604 Output Total 500 / 500 Balance 104 / 104 Medical Necessity - Tobacco Use Smoking Status: Never smoker Assessment/Plan All Active Problems Decreased movement (Acute) Assessment: 23 yo G1now P001 delivered at 401w6d by L=7w3d PP day #1, normal involution, normal course Plan: Discharge teaching started consult Discharge home tomorrow
[2019-09-15] MEDS: Ibuprofen 600 MG Tablet PO (16:29)
[2019-09-15 16:30] VITALS: BP 121/61; PULSE 89; TEMP 37.1; O2SAT 96
[2019-09-15 20:45] VITALS: BP 128/74; PULSE 120; RESP 18; TEMP 36.4; O2SAT 98
[2019-09-16 02:00] VITALS: BP 119/62; PULSE 75; RESP 18; TEMP 36.9
[2019-09-16] MEDS: Ibuprofen 600 MG Tablet PO (07:37)
[2019-09-16 07:50] VITALS: BP 129/60; PULSE 81; RESP 16; TEMP 37.1; O2SAT 97
== END 2019-09-16 11:05 | disposition home or self-care (01) | DRG 807 ==
PROVIDERS: Admitting Provider Advanced Practice Midwife; Referring Provider Advanced Practice Midwife; Visit Provider Advanced Practice Midwife
DX: O70.1 Second degree perineal laceration during delivery (principal); Z37.0 Single live birth; Z3A.40 40 weeks gestation of pregnancy
CPT/HCPCS: 59025; 59050; 85025; 86850; 86900; 86901; 99218; J7120; G0378

== ENCOUNTER → 2020-08-23 15:54 | Outpatient (CLI) | payer OTHER, SELFPAY ==
[2020-08-23 16:52] LABS: Absolute Lymphocyte Count 2.26 X10^3/uL (0.83-4.51); Absolute Neutrophil Count 10.4 X10^3/uL (2.0-7.7); Basophil# 0.05 X10^3/uL; Basophil% 0.4 % (0-1); Eosinophil# 0.07 X10^3/uL; Eosinophils% 0.5 % (0-5); Hematocrit 38.1 % (37-47); Hemoglobin 12.9 g/dL (12.0-15.0); Lymphocyte # 2.26 X10^3/ul (4.0); Lymphocyte % 16.6 % (19-41); Mean Corp Hgb Conc 33.9 g/dL (32-36); Mean Corpuscular Hgb 30.9 pg (27.0-32.0); Mean Corpuscular Volume 91.1 fL (81-99); Mean Platelet Vol. 9.9 fl (6.2-12.0); Monocyte# 0.71 X10^3/uL; Monocyte% 5.2 % (0-10); NRBC Flagged by Analyzer 0 % (0-5); Neutrophil # 10.42 X10^3/uL (2.7-7.7); Neutrophil % 76.8 % (47-70); Platelet Count 279 K/mm3 (150-450); RBC Distribution Width SD 39.6 fl (35.1-43.9); Red Blood Count 4.18 M/mm3 (4.2-5.4); White Blood Count 13.6 K/mm3 (4.4-11.0)
[2020-08-23 17:01] LABS: Color, Urine Yellow (Yellow); Glucose, Dipstick Normal (Normal); Ketone-Dipstick Negative (Negative); Leukocyte Esterase-Dipstick 25 /ul (Negative); Nitrite-Dipstick Negative (Negative); Occult Blood-Urine 150 /ul (Negative); Protein-Dipstick 15 mg/dl (Negative); Specific Gravity, Urine 1.015 (1.002-1.030); Urine Bilirubin Dipstick Negative (Negative); Urine Clarity Clear (Clear); Urine Urobilinogen Normal (Normal)
[2020-08-23 17:05] LABS: Amphetamine Urine VISTA NEGATIVE (<1000 ng/mL); Barbiturate Urine VISTA NEGATIVE (< 200 ng/mL); Benzodiazepine Urine VISTA NEGATIVE (< 200 ng/mL); Cocaine Urine VISTA NEGATIVE (< 300 ng/mL); Ecstacy Urine VISTA NEGATIVE (< 500 ng/mL); Methadone Urine VISTA NEGATIVE (< 300 ng/mL); PCP Urine VISTA NEGATIVE (< 25 ng/mL); THC Urine VISTA NEGATIVE (< 50 ng/mL); Vista UDS pH Range 6
[2020-08-24 10:20] LABS: HIV - WCH Non-Reactive (Nonreactive); Hepatitis B Surface Antigen Non-Reactive (Nonreactive); Hepatitis C Antibody Non-Reactive (Nonreactive); Rubella IgG 30.2 IU/mL
[2020-08-25 19:15] LABS: V-Zoster IgG (Immunity) 880 index (Immune >165)
[2020-08-26 02:04] LABS: Prenatal RPR NONREACTIVE (NONREACTIVE)
[2020-08-26 04:11] LABS: Chlamydia By Nucleic Acid AMP Negative (Negative)
[2020-08-26 11:06] LABS: Gonococcus By Nucleic Acid AMP Negative (Negative)
== END ==
PROVIDERS: Visit Provider Student in an Organized Health Care Education/Training Program
DX: Z34.81 Encounter for supervision of other normal pregnancy, first trimester (principal); Z11.3 Encounter for screening for infections with a predominantly sexual mode of transmission
CPT/HCPCS: 36415; 80307; 81002; 85025; 86703; 86762; 86787; 86803; 87086; 87340; 87491; 87591

== ENCOUNTER → 2020-12-07 08:13 | Outpatient (CLI) | payer OTHER, SELFPAY ==
[2020-12-08 07:15] LABS: SARS-COV-2 TOTAL ABS Reactive (Nonreactive)
== END ==
PROVIDERS: PCP Physician Assistant; Referring Provider Family Medicine; Visit Provider Family Medicine
DX: Z01.84 Encounter for antibody response examination (principal)
CPT/HCPCS: 36415; 86769

== ENCOUNTER → 2020-12-13 11:14 | Outpatient (CLI) | payer OTHER, SELFPAY ==
--- NOTE | 2020-12-13 11:58 | EKG12_ITS ---
Test Reason : SOB Blood Pressure : / mmHG Vent. Rate : 083 BPM Atrial Rate : 083 BPM P-R Int : 138 ms QRS Dur : 078 ms QT Int : 364 ms P-R-T Axes : 059 073 042 degrees QTc Int : 427 ms Normal sinus rhythm Normal ECG Confirmed by DAMION FRANKLIN, KAN ([id number]), metropolitan editor DEVON HANEY ([id number]) on 12/15/2020 6:06:35 AM Referred By: Nely Haney Confirmed By:KAN BRUNO MD
[2020-12-13 13:28] LABS: Hematocrit 31.5 % (37-47); Hemoglobin 10.6 g/dL (12.0-15.0); Mean Corp Hgb Conc 33.7 g/dL (32-36); Mean Corpuscular Hgb 31.2 pg (27.0-32.0); Mean Corpuscular Volume 92.6 fL (81-99); Mean Platelet Vol. 9.4 fl (6.2-12.0); Platelet Count 270 K/mm3 (150-450); RBC Distribution Width CV 12.1 % (11.6-14.6); RBC Distribution Width SD 41.1 fl (35.1-43.9); White Blood Count 8.8 K/mm3 (4.4-11.0)
[2020-12-13 13:46] LABS: Glucose Challenge Gest 1H 50g 118 mg/dL (70-140)
== END ==
PROVIDERS: PCP Physician Assistant; Referring Provider Student in an Organized Health Care Education/Training Program; Visit Provider Student in an Organized Health Care Education/Training Program
DX: Z34.82 Encounter for supervision of other normal pregnancy, second trimester (principal)
CPT/HCPCS: 36415; 82950; 85027; 93005

== ENCOUNTER → 2021-01-20 16:15 | Outpatient (CLI) | payer OTHER, SELFPAY | PROVIDERS: PCP Physician Assistant; Referring Provider Student in an Organized Health Care Education/Training Program; Visit Provider Student in an Organized Health Care Education/Training Program | DX: Z34.93 Encounter for supervision of normal pregnancy, unspecified, third trimester (principal); Z20.822 Contact with and (suspected) exposure to COVID-19 | CPT/HCPCS: 87635; C9803; U0005; U0003 ==

== ENCOUNTER → 2021-03-07 14:52 | Outpatient (CLI) | payer OTHER, SELFPAY | PROVIDERS: PCP Physician Assistant; Visit Provider Student in an Organized Health Care Education/Training Program | DX: Z36.85 Encounter for antenatal screening for Streptococcus B (principal) | CPT/HCPCS: 87081 ==

== ENCOUNTER → 2021-03-21 | Outpatient (CLI) | payer OTHER, SELFPAY | END | disposition home or self-care (01) | LOC: LABSPEC 16:18 | PROVIDERS: PCP Physician Assistant; Referring Provider Student in an Organized Health Care Education/Training Program; Visit Provider Student in an Organized Health Care Education/Training Program | DX: Z03.818 Encounter for observation for suspected exposure to other biological agents ruled out (principal) | CPT/HCPCS: 87635; C9803; U0002 ==

== ENCOUNTER 2021-03-28 07:00 | Inpatient (IN) | payer OTHER, SELFPAY ==
[2021-03-28] VITALS (31 sets, daily range): BP systolic 102–141; BP diastolic 55–76; PULSE 83–106; RESP 18; TEMP 36.9–37; O2SAT 91–100; BMI 29.0
[2021-03-28] MEDS: Lactated Ringers 1,000 ML 50 ML IV (07:30)
[2021-03-28 07:44] LABS: Basophil# 0.04 X10^3/uL; Basophil% 0.5 % (0-1); Eosinophil# 0.07 X10^3/uL; Eosinophils% 0.8 % (0-5); Hematocrit 32.2 % (37-47); Hemoglobin 10.4 g/dL (12.0-15.0); Lymphocyte % 19.3 % (19-41); Mean Corp Hgb Conc 32.3 g/dL (32-36); Mean Corpuscular Hgb 28.7 pg (27.0-32.0); Mean Corpuscular Volume 88.7 fL (81-99); Mean Platelet Vol. 10.1 fl (6.2-12.0); Monocyte# 0.52 X10^3/uL; Monocyte% 6.3 % (0-10); NRBC Flagged by Analyzer 0 % (0-5); Neutrophil # 6.01 X10^3/uL (2.7-7.7); Neutrophil % 72.4 % (47-70); Platelet Count 226 K/mm3 (150-450); RBC Distribution Width CV 13.2 % (11.6-14.6); RBC Distribution Width SD 42.8 fl (35.1-43.9); Red Blood Count 3.63 M/mm3 (4.2-5.4); White Blood Count 8.3 K/mm3 (4.4-11.0)
--- NOTE | 2021-03-28 08:40 | PCM.HP.OB ---
HPI - General General Date of Admission: 03/28/21 HPI Narrative 25-year-old G2, P1 at 39/2 weeks, GEOVANNI 04/02/2021 by LMP, admitted for induction of labor at term. Reports intermittent contractions. Denies leaking of fluid, vaginal bleeding. Reports normal movement. Denies headache, vision changes, chest pain, shortness of breath, nausea/vomiting, diarrhea, fevers or chills. complicated by: Depression on Zoloft, history of LGA (36w US: EFW 2909 gms, BPD-95.5%) [facility] Medical History Depression depression Home Medications vit no.[id number] 1 ea PO DAILY 08/09/19 [History Last Taken 08/08/19 22:30] sertraline mg 03/28/21 [History Last Taken Unknown] Allergy/AdvReac Type Severity Reaction Status Date / Time acetaminophen [From Vicodin] AdvReac Nausea/Vom/ Verified 08/09/19 17:20 Diarrhea hydrocodone [From Vicodin] AdvReac Nausea/Vom/ Verified 08/09/19 17:20 Diarrhea Surgical History History of surgery Social History Smoking Status: Never smoker History Elective abortions Hx Para 1 Spontaneous abortions Hx # Term Pregnancies Ectopic pregnancies Hx # Pregnancies Multiple births # of living children NST FHR Rate Baby A Baseline: 150 Variability:: Moderate Accelerations:: 15 x 15 Decelerations:: None NST Reactive:: Yes FHR Category:: Category I Uterine Activity:: Irregular ctx ROS Constitutional Constitutional: Reports systems reviewed and no addt'l complaints, except as documented Eyes Eyes: Reports systems reviewed and no addt'l complaints, except as documented ENT HEENT: Reports systems reviewed and no addt'l complaints, except as documented Cardiovascular Cardiovascular: Reports systems reviewed and no addt'l complaints, except as documented Respiratory/Chest Respiratory/Chest: Reports systems reviewed and no addt'l complaints, except as documented Gastrointestinal Gastrointestinal: Reports systems reviewed and no addt'l complaints, except as documented Genitourinary Genitourinary: Reports systems reviewed and no addt'l complaints, except as documented Integumentary Integumentary: Reports systems reviewed and no addt'l complaints, except as documented Neurologic Neurologic: Reports systems reviewed and no addt'l complaints, except as documented Psychiatric Psychiatric: Reports systems reviewed and no addt'l complaints, except as documented Endocrine Endocrinology: Reports systems reviewed and no addt'l complaints, except as documented Hematologic/Lymphatic Hematologic/Lymphatic: Reports systems reviewed and no addt'l complaints, except as documented Allergic/Immunologic Allergic/Immunologic: Reports systems reviewed and no addt'l complaints, except as documented Vital Signs Vital Signs Vital Signs: 03/28/21 07:50 03/28/21 07:51 Temperature 98.6 F Temperature Source Temporal Pulse Rate 95 94 Blood Pressure 112/62 BP Systolic 112 BP Diastolic 62 Pulse Ox 97 Physical Exam Narrative B positive Rubella/varicella immune Hepatitis B/C negative HIV negative RPR nonreactive GBS negative on 03/07 Const alert, oriented x3 and no apparent distress HEENT normocephalic Head and Scalp: atraumatic Neck full ROM Resp normal respiratory effort and clear to auscultation bilaterally Cardio regular rate and regular rhythm GI normal to inspection, nondistended, normoactive bowel sounds GI Narrative: gravid Narrative: CE 5/70/-2, AROM clear fluid Extremity normal to inspection General Extremity: Negative for edema Skin no rashes or lesions noted Neuro no focal motor deficits Psych mental status grossly normal and affect normal Assessment & Plan Assessment/Plan (1) Elective induction of labor planned: Status: Acute Plan: 25-year-old G2, P1 at 39/2 weeks admitted for induction of labor at term. Complicated by history of large for gestational age, depression on Zoloft. Plan for induction with AROM, if no change in cervix we will add Pitocin. Continue home medications. Patient is GBS negative.
[2021-03-28] MEDS: fentaNYL-bupivacaine (epidural) 100 ML BAG EPIDURAL (10:06)
[2021-03-28] MEDS: Oxytocin 30 units/NS 500 ml 30 UNITS/500 ML IV.SOLN IV (11:35)
[2021-03-28] MEDS: Oxytocin 30 units/NS 500 ml 30 UNITS/500 ML IV.SOLN 334 UNITS IV (13:44)
--- NOTE | 2021-03-28 14:06 | EX.PCM.OBRPT ---
Report of Operation (OB) Information Final GEOVANNI: 04/02/21 Final GEOVANNI Source: LMP Gestational age: 39 Weeks and 2 Days Operative Information Date of Procedure: 03/28/21 Pre-Operative Diagnosis: Macias intrauterine , term elective induction of labor Post-Operative Diagnosis: Macias intrauterine , term elective induction of labor Type of Anesthesia: Epidural Findings Description of Procedure: Spontaneous vaginal delivery of viable female. No nuchal cord. Baby to mom. Cord clamped and cut. Spontaneous delivery of placenta. No lacerations. EBL 250cc. APGARS 8/9. Procedure Performed: Spontaneous Vaginal Delivery
--- NOTE | 2021-03-28 14:14 | PCM.DC.SUM ---
Providers Date of Admission: 03/28/21 Primary Care Physician: CHON Duke Reason For Visit: VAGINAL DELIVERY Diagnosis Discharge Diagnosis (1) Elective induction of labor planned: Status: Acute Medications at Discharge Home Medications vit no.[id number] 1 ea PO DAILY 08/09/19 sertraline mg 03/28/21 ABG / Lab / Microbiology Data Result Diagrams: 03/28/21 07:30 Laboratory: Laboratory Results - last 24 hr 03/28/21 03/28/21 07:30 07:30 WBC 8.3 RBC 3.63 L Hgb 10.4 L Hct 32.2 L MCV 88.7 MCH 28.7 MCHC 32.3 RDW Std Deviation 42.8 RDW Coeff of Aron 13.2 Plt Count 226 MPV 10.1 Immature Gran % (Auto) 0.700 Neut % (Auto) 72.4 H Lymph % (Auto) 19.3 [place] % (Auto) 6.3 Eos % (Auto) 0.8 Baso % (Auto) 0.5 Absolute Neuts (auto) 6.0 Absolute Lymphs (auto) 1.60 Nucleated RBC % 0 Blood Type B POSITIVE Antibody Screen NEGATIVE Discharge Plan Admission Admit Date/Time: 03/28/21 07:00 Primary Reason for Your Visit: Induction of labor Attending Provider: Nely Haney Primary Care Provider: Josephine Flores Instructions Forms: Information Patient Instructions: Anemia Discharge Orders/Prescriptions Prescriptions: Continued vit no.[id number] 1 EACH tablet 1 ea PO DAILY RF: 0 sertraline 50 mg tablet RF: 0 Referrals: Josephine Flores PA [Primary Care Provider] - Disposition Disposition (needs filled in before D/C Order can be placed): Home, self care
[2021-03-28] MEDS: Ibuprofen 600 MG Tablet PO (20:05)
[2021-03-29] VITALS (7 sets, daily range): BP systolic 116–135; BP diastolic 56–74; PULSE 75–91; RESP 16–18; TEMP 36.5–37; O2SAT 97–98
--- NOTE | 2021-03-29 07:58 | PCM.PN.OB ---
Subjective Subjective: day 1. Feeling well. Breast-feeding. Lochia minimal. Objective Data Objective Data Vital Signs: Vital Signs Temp Pulse Resp BP Pulse Ox 97.7 F L 79 18 119/60 99 03/29/21 03:39 03/29/21 03:42 03/29/21 03:39 03/29/21 03:42 03/28/21 10:32 Oxygen Delivery Method Room Air Weight: 174 lb 6.4 oz Body Mass Index (BMI) 29.0 Intake & Output: Intake and Output for Last 24 Hours 03/27/21 03/28/21 03/29/21 23:59 23:59 23:59 Intake Total 1506.23 / 1506.23 Output Total 1600 / 1600 Balance -93.77 / -93.77 Lab / Micro Data Result Diagrams: 03/28/21 07:30 Labs: Laboratory Results - last 24 hr 03/28/21 07:30 Blood Type B POSITIVE Antibody Screen NEGATIVE Physical Exam Const alert, oriented x3 and no apparent distress HEENT normocephalic Head and Scalp: atraumatic Resp normal respiratory effort Cardio regular rate GI normal to inspection, nondistended, normoactive bowel sounds GI Narrative: Uterus 2 cm below umbilicus. Extremity normal to inspection and no pedal edema Skin no rashes or lesions noted Psych affect normal Assessment & Plan Assessment/Plan (1) state: Status: Acute Code(s): Z39.2 - Encounter for routine follow-up Plan: day 1 status post . Complicated by history of depression on Zoloft, stable. Anemia of , stable iron supplement at home. Doing well. Breast-feeding. Home today. (2) Anemia affecting : Status: Acute Code(s): O99.019 - Anemia complicating , unspecified trimester
--- NOTE | 2021-03-29 08:01 | PCM.DC.SUM ---
Providers Date of Admission: 03/28/21 Primary Care Physician: CHON Duke Reason For Visit: VAGINAL DELIVERY Diagnosis Discharge Diagnosis (1) state: Status: Acute Code(s): Z39.2 - Encounter for routine follow-up (2) Anemia affecting : Status: Acute Code(s): O99.019 - Anemia complicating , unspecified trimester Medications at Discharge Home Medications vit no.[id number] 1 ea PO DAILY 08/09/19 sertraline mg 03/28/21 Hospital Course Operations None Summary of Care Provided Hospital Course: Patient admitted on March 28 for induction of labor at term, elective. Had spontaneous vaginal delivery on March 28. Stable for discharge on March 29, 2021. Physical Exam Const alert, oriented x3 and no apparent distress HEENT normocephalic Head and Scalp: atraumatic Resp normal respiratory effort Cardio regular rate GI normal to inspection, nondistended, normoactive bowel sounds GI Narrative: Uterus 2 cm below umbilicus Extremity no pedal edema Skin no rashes or lesions noted Neuro no focal motor deficits Psych affect normal ABG / Lab / Microbiology Data Result Diagrams: 03/28/21 07:30 Laboratory: Laboratory Results - last 24 hr 03/28/21 07:30 Blood Type B POSITIVE Antibody Screen NEGATIVE D/C Instructions Discharge Diet: No restrictions Discharge Activity: Return to Normal Activity and May Shower May resume sexual activity in: 4-6 weeks Weight Bearing Status: Weight bearing as tolerated Lifting Restricted to (Lbs): 25 Call your doctor if you observe: Fever of 101 or Higher, Inability to urinate, Using more than one pad per hour, Swelling in the ankles, Chest pain, Increased palpitations (irregular heartbeat) and Calf discomfort Cleanse incision/area with: Soap & Water Please Follow Up With: MORGAN MARSH When: 3 WEEK TELEHEALTH, 6 WEEK Meaningful Use Info Meaningful Use Diagnoses (Choose all that apply): None applicable Discharge Plan Admission Admit Date/Time: 03/28/21 07:00 Primary Reason for Your Visit: Induction of labor Attending Provider: Morgan Marsh Primary Care Provider: Josephine Flores Instructions Forms: Information Patient Instructions: Anemia Discharge Orders/Prescriptions Prescriptions: Continued vit no.[id number] 1 EACH tablet 1 ea PO DAILY RF: 0 sertraline 50 mg tablet RF: 0 Referrals: Josephine Flores, PA [Primary Care Provider] - Disposition Disposition (needs filled in before D/C Order can be placed): Home, self care
[2021-03-29] MEDS: Ibuprofen 600 MG Tablet PO ×2 (09:00→15:30)
--- NOTE | 2021-03-29 13:54 | CASEMGMT ---
Social Work Assessment Labor and Delivery Unit Patient Address: [address] [place] [address] [address], [place] [address] Phone number: [phone] Date of Referral: 03/28/2021 Time of Referral: 170 Referred By: Dr. Sharif Meade Date of Intervention: 03/29/2021 Time of Intervention: 1200 Reason for Referral: Maternal history of depression, currently on Zoloft History obtained from: Medical records and mother of baby (MOB) Hallie Edmonds. Father of baby (FOB) Jimmie Edmonds present for part of conversation. Household composition: MOB, FOB, and their older child. Home situation is reported as safe and adequate. Patient's parent/guardian status: LING is a 25 year old female, to the FO for almost 3 years. MOB denies any form of abuse, control, or intimidation in this relationship. MOB and FOB now have 2 children together. Nigel Edmonds, born 09/14/2019. baby Aurora Edmonds, born 03/28/2021. Medical History: LING is 2, para 1 now 2 after delivering Aurora. care adequate. Aurora's weight was 8 pounds 11 ounces, Apgars 8 and 9 at 1 and 5 minutes of life respectively. Educational Status: College. No reported concerns with reading, writing, or learning comprehension for this MOB. Financial Status: LING works part-time from home and the FOB works on a dairy farm. No reported concerns with finances. Supplies: LING reports to have needed supplies including car seat, safe sleep space, clothing, diapers, wipes. LING is breast-feeding. Childcare/Caregiver(s): LING is the primary caregiver. Assistance from the [facility] when he is home. Transportation: No reported concerns, both parents drive. Programs/Agencies Involved: No agency involvement. Denies need for any referrals such as back. No reported history of children services or any legal issues. Behavioral Health Issues: Mental Health History: LING reports a history of depression, anxiety, and depression and anxiety. LING reports she struggled with the depression and anxiety after the of Nigel, but waited for about 6 months to seek any help. MOB reports one episode of suicidal suicidal ideation which is what prompted the MOB to seek help and speak with her doctor. MOB reports that she went back on antidepressant medication a couple of months into this and plans to remain on the antidepressant in the . MOB reports to feel a click at this time, as compared to prior episode of mood and anxiety issues. Reports to feel much calmer. Substance Use History: No reported history of substance use issues. Drug Screens: Maternal screen - 08/23/2020 Family/Social Stressors: Covid pandemic increasing isolation, however things have improved over the recent months. Maternal history of mood and anxiety disorders. MOB reports of depression present during this , but took steps to get this managed. Support Systems: MOB reports good support from the FOB, [id number], and in-laws who all live close by. MOB parents are supportive, but with 2 and half hours away. The owners of the [employer] for which the FOB works, also reported a strong support system. Depression/Shaken Baby/Safe Sleeping education provided. ASSESSMENT: Met with the MOB privately in room, introducing to self and social work role. FOB was out of the room purchasing lunch. Support with the MOB whether it was okay to talk about depression and emotional health issues when the FOB returned. MOB agreed, reporting that FOB has been one of the MOB biggest supporters. MOB denied any history, or concerns, of abuse, control, or intimidation in the relationship with the FOB. FOB returned shortly after and engaged in conversation. FOB sister presented to the hospital to drop something off so FOB exited and the sister entered the room. MOB voiced it was okay to continue talking with the sister in the room as well. MOB demeanor remain the same when talking to this machine sign writer alone, and also when family members were present. MOB cooperative, pleasant, and engaged in conversation. The FOB was also engaged in conversation during his time in the room. Both parents were tearful at times, when talking about MOB history of depression and anxiety. FOB presenting as supportive of the MOB. MOB reports plan to stay on her antidepressant medication, as well as plan to talk with About increasing dose if depression worsens. Discussed the idea of distress with the MOB and this being something to consider, as to when it is time to increase support or interventions. MOB reports she would be willing to seek counseling, if medication are not helpful or enough. At this time MOB reports to feel much calmer than in the past, and reports to feel good overall. MOB reports to feel connection with the baby, and believes that she will have adequate support upon home-going. MOB receptive to accepting a packet on mood and anxiety disorders, which includes local and online resources. MOB expressed appreciation for social work visit and information offered. Provided emotional support to both the MOB and the FOB. Did broach the topic of father is also experiencing depression, and the importance of FOB taking care of himself as well. This machine sign writer observed both the MOB and the FOB handled the baby. Both were calm, and appropriate, appearing the have bonding cues with the baby. PLAN: MOB and infant will discharge home when ready, anticipating discharge today. Resources provided for mood and anxiety disorders, with resources to follow-up on should MOB point will need additional support. No other services requested or indicated. -ALDA Chan, PAM *Information documented in this assessment generated with [employer]*
== END 2021-03-29 16:10 | disposition home or self-care (01) | DRG 807 ==
PROVIDERS: Admitting Provider Student in an Organized Health Care Education/Training Program; PCP Physician Assistant; Visit Provider Student in an Organized Health Care Education/Training Program
DX: O99.02 Anemia complicating childbirth (principal); Z37.0 Single live birth; D64.9 Anemia, unspecified; O99.344 Other mental disorders complicating childbirth; F32.9 Major depressive disorder, single episode, unspecified; Z3A.39 39 weeks gestation of pregnancy; Z87.59 Personal history of other complications of pregnancy, childbirth and the puerperium
CPT/HCPCS: 59025; 59050; 85025; 86850; 86900; 86901; 99218; J7120; G0378

== ENCOUNTER → 2021-05-05 11:16 | Outpatient (CLI) | payer OTHER, SELFPAY ==
[2021-03-28 07:27] VITALS: BMI 29.0
[2021-05-07 00:11] LABS: Chlamydia By Nucleic Acid AMP Negative (Negative)
[2021-05-07 10:02] LABS: Gonococcus By Nucleic Acid AMP Negative (Negative)
== END ==
PROVIDERS: PCP Physician Assistant; Visit Provider Student in an Organized Health Care Education/Training Program
DX: Z30.430 Encounter for insertion of intrauterine contraceptive device (principal); Z11.3 Encounter for screening for infections with a predominantly sexual mode of transmission
CPT/HCPCS: 87491; 87591

== ENCOUNTER 2021-11-29 10:58 | Outpatient (CLI) | payer OTHER, SELFPAY ==
[2021-12-02 14:08] LABS: HPV Reflexed? NOT INDICATED
== END 2021-11-29 23:59 | disposition short-term general hospital (02) ==
LOC: LABSPEC 11:04
PROVIDERS: PCP Physician Assistant; Visit Provider Student in an Organized Health Care Education/Training Program
DX: Z12.4 Encounter for screening for malignant neoplasm of cervix (principal)
CPT/HCPCS: 88175; G0145

== ENCOUNTER → 2023-06-18 | Outpatient (CLI) | payer OTHER, SELFPAY ==
[2023-06-18 10:58] LABS: Absolute Lymphocyte Count 2.06 X10^3/uL (0.83-4.51); Absolute Neutrophil Count 4.1 X10^3/uL (2.0-7.7); Basophil# 0.07 X10^3/uL; Basophil% 1.1 % (0-1); Eosinophil# 0.07 X10^3/uL; Eosinophils% 1.1 % (0-5); Hemoglobin 13.7 g/dL (12.0-15.0); Lymphocyte # 2.06 X10^3/ul (0.83-4.51); Mean Corp Hgb Conc 34.3 g/dL (32-36); Mean Corpuscular Volume 90.5 fL (81-99); Mean Platelet Vol. 9.7 fl (6.2-12.0); Monocyte# 0.34 X10^3/uL; Monocyte% 5.1 % (0-10); NRBC Flagged by Analyzer 0 % (0-5); Neutrophil # 4.09 X10^3/uL (2.7-7.7); Neutrophil % 61.4 % (47-70); Platelet Count 259 K/mm3 (150-450); RBC Distribution Width CV 11.9 % (11.6-14.6); RBC Distribution Width SD 39.2 fl (35.1-43.9); Red Blood Count 4.42 M/mm3 (4.2-5.4); White Blood Count 6.7 K/mm3 (4.4-11.0)
[2023-06-18 11:44] LABS: ALB/GLOB Ratio 1.2 RATIO (0.9-2.4); AST(SGOT) 12 U/L (15-37); Alanine Aminotransfer ALT/SGPT 15 U/L (13-56); Alkaline Phosphatase 53 U/L (45-117); Anion Gap 4 (5-15); BUN 8 mg/dL (7-18); BUN/Creat Ratio 9.8 RATIO (10-20); Calcium,Total 8.5 mg/dL (8.5-10.1); Chloride 109 mmol/L (98-107); Creatinine, Serum 0.82 mg/dL (0.55-1.02); EST Glomerular Filtration Rate 89 mL/min (>60); Est Glom Filt Rate - Afr Amer 108 mL/min (>60); Globulin 3.3 g/dL (2.2-4.2); Glucose 86 mg/dL (74-106); Potassium 3.8 mmol/L (3.5-5.1); Protein, Total 7.3 g/dL (6.4-8.2); Sodium Level 140 mmol/L (136-145); Thyroid Stim Hormone (TSH) 1.21 uIU/mL (0.358-3.74)
== END | disposition home or self-care (01) ==
LOC: MFPLAB 09:41
PROVIDERS: PCP Family Medicine; Visit Provider Family Medicine
DX: R63.5 Abnormal weight gain (principal)
CPT/HCPCS: 36415; 80053; 82533; 84443; 85025

== ENCOUNTER → 2024-01-02 | Outpatient (CLI) | payer OTHER, SELFPAY ==
[2024-01-02 15:02] LABS: Absolute Lymphocyte Count 2.51 X10^3/uL (0.83-4.51); Absolute Neutrophil Count 4.3 X10^3/uL (2.0-7.7); Basophil# 0.06 X10^3/uL; Basophil% 0.8 % (0-1); Eosinophil# 0.07 X10^3/uL; Eosinophils% 0.9 % (0-5); Hematocrit 40.9 % (37-47); Hemoglobin 13.7 g/dL (12.0-15.0); Lymphocyte # 2.51 X10^3/ul (0.83-4.51); Lymphocyte % 33.6 % (19-41); Mean Corp Hgb Conc 33.5 g/dL (32-36); Mean Corpuscular Hgb 30.5 pg (27.0-32.0); Mean Corpuscular Volume 91.1 fL (81-99); Mean Platelet Vol. 9.9 fl (6.2-12.0); Monocyte% 6.7 % (0-10); NRBC Flagged by Analyzer 0 % (0-5); Neutrophil # 4.33 X10^3/uL (2.7-7.7); Neutrophil % 57.9 % (47-70); Platelet Count 261 K/mm3 (150-450); RBC Distribution Width CV 11.9 % (11.6-14.6); RBC Distribution Width SD 39.7 fl (35.1-43.9); Red Blood Count 4.49 M/mm3 (4.2-5.4); White Blood Count 7.5 K/mm3 (4.4-11.0)
[2024-01-02 15:22] LABS: Vitamin B12 497 pg/mL (211-911)
[2024-01-02 15:27] LABS: ALB/GLOB Ratio 1.2 RATIO (0.9-2.4); AST(SGOT) 14 U/L (15-37); Alanine Aminotransfer ALT/SGPT 18 U/L (13-56); Albumin, Serum 4.4 g/dL (3.2-5.0); Alkaline Phosphatase 56 U/L (45-117); Anion Gap 1 (5-15); BUN 13 mg/dL (7-18); BUN/Creat Ratio 13.3 RATIO (10-20); Calcium,Total 9.4 mg/dL (8.5-10.1); Chloride 108 mmol/L (98-107); Creatinine, Serum 0.98 mg/dL (0.55-1.02); EST Glomerular Filtration Rate 72 mL/min (>60); Est Glom Filt Rate - Afr Amer 88 mL/min (>60); Ferritin 38 ng/mL (8-252); Globulin 3.7 g/dL (2.2-4.2); Glucose 78 mg/dL (74-106); Magnesium 2.3 mg/dL (1.6-2.6); Potassium 3.8 mmol/L (3.5-5.1); Protein, Total 8.1 g/dL (6.4-8.2); Sodium Level 136 mmol/L (136-145); Thyroid Stim Hormone (TSH) 1.38 uIU/mL (0.358-3.74)
[2024-01-02 16:00] LABS: Hemoglobin A1c 4.7 % (3.8-5.6)
== END | disposition home or self-care (01) ==
LOC: MFPLAB 11:21
PROVIDERS: PCP Family Medicine; Visit Provider Family Medicine
DX: R20.0 Anesthesia of skin (principal)
CPT/HCPCS: 36415; 80053; 82607; 82728; 83036; 83735; 84443; 85025

== ENCOUNTER → 2025-01-26 | Outpatient (CLI) | payer OTHER, SELFPAY ==
[2025-01-26 12:13] LABS: Absolute Lymphocyte Count 1.73 X10^3/uL (0.83-4.51); Absolute Neutrophil Count 3.2 X10^3/uL (2.0-7.7); Basophil# 0.07 X10^3/uL; Basophil% 1.3 % (0-1); Eosinophil# 0.07 X10^3/uL; Eosinophils% 1.3 % (0-5); Hematocrit 39.8 % (37-47); Hemoglobin 13.4 g/dL (12.0-15.0); Lymphocyte # 1.73 X10^3/ul (0.83-4.51); Lymphocyte % 31.7 % (19-41); Mean Corp Hgb Conc 33.7 g/dL (32-36); Mean Corpuscular Hgb 30.2 pg (27.0-32.0); Mean Corpuscular Volume 89.8 fL (81-99); Mean Platelet Vol. 10.1 fl (6.2-12.0); Monocyte# 0.41 X10^3/uL; Monocyte% 7.5 % (0-10); NRBC Flagged by Analyzer 0 % (0-5); Neutrophil # 3.17 X10^3/uL (2.7-7.7); Platelet Count 266 K/mm3 (150-450); RBC Distribution Width CV 12.2 % (11.6-14.6); RBC Distribution Width SD 39.9 fl (35.1-43.9); Red Blood Count 4.43 M/mm3 (4.2-5.4); White Blood Count 5.5 K/mm3 (4.4-11.0)
[2025-01-26 14:14] LABS: Vitamin D,25 Hydroxy 31.5 ng/mL (30-100)
[2025-01-30 11:16] LABS: HPV Reflexed? NOT INDICATED
[2025-02-01 19:07] LABS: Testosterone Free 1.7 pg/mL (0.0-4.2); Thyroid Peroxidase AB < 9 IU/mL (0-34)
== END | disposition home or self-care (01) ==
LOC: BWCLAB 09:45
PROVIDERS: Referring Provider Nurse Practitioner Women's Health; Visit Provider Nurse Practitioner Women's Health
DX: Z13.29 Encounter for screening for other suspected endocrine disorder (principal); Z12.4 Encounter for screening for malignant neoplasm of cervix; L68.0 Hirsutism; L70.9 Acne, unspecified; R68.89 Other general symptoms and signs
CPT/HCPCS: 36415; 82306; 84402; 84439; 84443; 85025; 86376; 88175; G0145